=== PATIENT | female | born 1995 | race African-American/Black ===

== ENCOUNTER 2021-05-05 02:59 | Emergency (ER) | payer MEDICAID, SELFPAY ==
[2021-05-05 03:20] VITALS: BP 118/77; PULSE 79; RESP 16; O2SAT 98; BMI 44.3
--- NOTE | 2021-05-05 03:28 | ED.PEDHENT ---
HPI - Pediatric HENT General Chief complaint: Ear Problems Stated complaint: Earache Time Seen by Provider: 05/05/21 03:07 Source: patient Mode of arrival: ambulatory Limitations: no limitations History of Present Illness HPI Narrative: Patient comes emergency room complaining of right-sided ear pain for 1 week. Patient states that she has been trying to use around the clock Tylenol and ibuprofen but has had no pain relief. Patient denies ear discharge, no recent swimming. Denies fever chills Related Data Previous Rx's Medication Instructions Recorded penicillin V potassium 500 mg PO TID 10 Days #30 tab 05/05/21 Allergies Allergy/AdvReac Type Severity Reaction Status Date / Time No Known Allergies Allergy Verified 05/05/21 03:19 Pediatric Review of Systems : Constitutional: Denies fever Eyes: Denies eye pain ENT: Reports ear pain Cardiovascular: Denies chest pain Respiratory: Denies cough Gastrointestinal: Denies vomiting and diarrhea Genitourinary: Denies polyuria Musculoskeletal: Denies back pain Integumentary: Denies rash Neurological: Denies headache Psychiatric: Denies change in energy level Endocrine: Denies fatigue Hematological/Lymphatic: Denies easy bleeding Allergic/Immunologic: Denies facial swelling PMFSH Past Medical History Medical History Anxiety Asthma Depression Social History Social History Advance Directives: No Advance Directives Information Provided: Yes Patient : No Pediatric Exam Narrative: Physical exam: Appearance: Alert. Oriented X3. No acute distress. Eyes: Pupils equal, round and reactive to light. ENT: Pharynx normal. Bilateral tympanic membranes within normal limits, normal ear canals. Patient does have a chip to us in the maxillary side on the right side and poor dentition. Neck: Normal inspection. Neck supple. No lymph nodes noted. No crepitus CVS: Normal heart rate and rhythm. Pulses normal. Normal S1 and S2 Respiratory: No respiratory distress. Breath sounds normal. No Wheezing. No rales Abdomen: Soft and nontender. No rigidity. No distention. good BS x4 Skin: Skin warm and dry. Normal skin color. Normal skin turgor. Extremities: No lower extremity edema. No lower extremity edema. No Lacerations. No Rash Neuro: Oriented X 3. No motor deficit. No sensory deficit. Moving all extermities. No slurred speech. General: Limitations: no limitations Course Course Course Narrative: I discussed with the patient that she likely has right-sided ear pain radiating from the maxillary side on the right side back unit in a toothache. Otoscopic exam within normal limits. Patient was given the 1st dose of penicillin and IM Toradol in the emergency room. Patient instructed to follow-up with her dentist Discharge Plan Discharge Clinical Impression: Pain, dental, Otalgia of right ear Patient Disposition: Home, Self-Care Instructions: Toothache (ED) Additional Instructions: Please follow-up with your primary care physician tomorrow. If you have any worsening or new symptoms, please return to the emergency room or call 911 Prescriptions: New penicillin V potassium 500 mg tablet 500 mg PO TID 10 Days Qty: 30 RF: 0
[2021-05-05] MEDS: Ketorolac Tromethamine 60 MG/2 ML VIAL IM (03:33)
[2021-05-05] MEDS: Penicillin V Potassium 250 MG TABLET 500 MG PO (03:33)
== END 2021-05-05 03:37 | disposition home or self-care (01) ==
LOC: HO.ED 03:33
PROVIDERS: Emergency Provider Emergency Medicine
DX: H92.01 Otalgia, right ear (principal); K08.89 Other specified disorders of teeth and supporting structures
CPT/HCPCS: 96372; 99283; 99284; J1885